=== PATIENT | male | born 1960 | race American Indian/Alaskan Native ===

== ENCOUNTER 2018-12-22 11:45 | Inpatient (IN) | payer OTHER ==
[2018-12-22 11:45] VITALS: BMI 20.7
--- NOTE | 2018-12-22 12:56 | C.PDOC ---
History Of Present Illness 58 year old with PMHx of bipolar disorder and substance abuse presents to the ED accompanied by requesting substance detoxification. As per , she found patient unresponsive yesterday status post overdose. Patient was taking to [facility] where he was discharged for overdose. Pt reports he does 5-10 bags of heroin daily. He states he attempted to commit suicide yesterday by snorting more than his usual amount of heroin and ingesting other pills from the street. Patient also admits to drinking alcohol and snorting cocaine. Last use of heroin was last night. Denies any visual/auditory hallucinations, SI or HI currently in the ED. Admits he needs help and is requesting detoxification. Chief Complaint (Nursing): Psychiatric Evaluation History Per: Patient, Family () History/Exam Limitations: no limitations Onset/Duration Of Symptoms: Days Current Symptoms Are (Timing): Still Present Suicide/Self Injury Attempted (Context): Ingestion Modifying Factor(s): Alcohol, Narcotics, Cocaine Associated Symptoms: Suicidal Thoughts Past Medical History Reviewed: Historical Data, Nursing Documentation, Vital Signs Vital Signs: Last Vital Signs Temp 98.1 F 12/22/18 11:47 Pulse 64 12/22/18 11:47 Resp 18 12/22/18 11:47 BP 164/106 H 12/22/18 11:47 Pulse Ox 100 12/22/18 11:47 Primary Care Provider: Javier Jeffries - Medical History PMH: Bipolar Disorder, Depression, HTN, Seizures Denies: Diabetes, Hepatitis, HIV, Chronic Kidney Disease, Sexually Transmitted Disease Other Surgeries: hx of surgeries Family History: States: No Known Family Hx - Social History Hx Alcohol Use: Yes Hx Substance Use: Yes (heroin, crack) - Immunization History Hx Tetanus Toxoid Vaccination: No Hx Influenza Vaccination: No Hx Pneumococcal Vaccination: No Review Of Systems Except As Marked, All Systems Reviewed And Found Negative. Constitutional: Negative for: Fever, Chills Cardiovascular: Negative for: Chest Pain Respiratory: Negative for: Shortness of Breath Gastrointestinal: Negative for: Nausea, Vomiting, Abdominal Pain, Diarrhea Psych: Negative for: Suicidal ideation, Other (hallucinations, HI ) Physical Exam - Physical Exam Appears: Non-toxic, No Acute Distress Skin: Warm, Dry Head: Normacephalic Eye(s): right: Other (opacified iris ), left: Normal Inspection Nose: Normal Oral Mucosa: Moist Neck: Supple Chest: Symmetrical Cardiovascular: Rhythm Regular Respiratory: Normal Breath Sounds, No Rales, No Rhonchi, No Wheezing Gastrointestinal/Abdominal: Soft, No Tenderness Extremity: No Pedal Edema, Other (venous stasis of bilateral lower extremities ) Neurological/Psych: Oriented x3, Normal Speech, Normal Cognition, Normal Motor, Normal Sensation Gait: Steady ED Course And Treatment - Laboratory Results Result Diagrams: 12/22/18 12:53 12/22/18 12:53 ECG: Interpreted By Me, Viewed By Me ECG Rhythm: Sinus Bradycardia Interpretation Of ECG: Normal axis, no ST elevations, normal QRS Rate From EC O2 Sat by Pulse Oximetry: 100 (RA) Pulse Ox Interpretation: Normal Medical Decision Making Medical Decision Making: Plan - EKG - UA - 1:1 Observation - Bloodwork for medical clearance for crisis evaluation. 13:45 Patient medically cleared for crisis evaluation. 14:42 ZAK Malhotra, states patient is accepted by Dr. Shoemaker to detox. Disposition Counseled Patient/Family Regarding: Studies Performed, Diagnosis - Disposition Disposition: HOSPITALIZED Disposition Time: 11:42 Condition: STABLE - POA Present On Arrival: Blood Incompatibility - Clinical Impression Clinical Impression: Bipolar disorder, Polysubstance abuse - Scribe Statement The provider has reviewed the documentation as recorded by the Scribe Renetta Centeno All medical record entries made by the Scribe were at my direction and personally dictated by me. I have reviewed the chart and agree that the record accurately reflects my personal performance of the history, physical exam, medical decision making, and the department course for this patient. I have also personally directed, reviewed, and agree with the discharge instructions and disposition.
[2018-12-22 12:57] LABS: BASO # 0.1 K/uL (0.0-0.2); BASO % 1.5 % (0.0-2.0); EOS # 0.2 K/uL (0.0-0.7); EOS % 3.8 % (0.0-4.0); HEMOGLOBIN 12.2 g/dL (12.0-18.0); LYMPH # 0.6 K/uL (1.0-4.3); LYMPH % 14.8 % (20.0-40.0); MEAN CELL VOLUME 93.6 fL (80.0-94.0); MEAN CORPUSCULAR HEMOGLOBIN 32.2 pg (27.0-31.0); MEAN CORPUSCULAR HGB CONC 34.4 g/dL (33.0-37.0); MONO # 0.2 K/uL (0.0-0.8); MONO % 5.5 % (0.0-10.0); NEUT # 3.2 K/uL (1.8-7.0); NEUT % 74.4 % (50.0-75.0); RBC 3.78 Mil/uL (4.40-5.90); RED CELL DISTRIBUTION WIDTH 15.2 % (11.5-14.5); WHITE BLOOD COUNT 4.3 K/uL (4.8-10.8)
[2018-12-22 13:06] LABS: SQUAMOUS EPITHIAL 1 /hpf (0-5); URINE BACTERIA RARE (<OCC); URINE BILIRUBIN NEGATIVE (NEGATIVE); URINE BLOOD NEGATIVE (NEGATIVE); URINE CLARITY Hazy (Clear); URINE COLOR Yellow (YELLOW); URINE GLUCOSE (UA) NORMAL (Normal); URINE LEUKOCYTE ESTERASE 1+ Leu/uL (Negative); URINE PROTEIN 1+ mg/dL (NEGATIVE)
[2018-12-22 13:09] LABS: ACETAMINOPHEN < 10.0 ug/mL (10.0-30.0); SALICYLATE < 1.0 {null, mg/dL 1}
[2018-12-22 13:11] LABS: ALB/GLOB RATIO 1.3 (1.0-2.1); ALBUMIN 3.5 g/dL (3.5-5.0); ALT/SGPT 24 U/L (21-72); AST/SGOT 22 U/L (17-59); BLOOD UREA NITROGEN 18 mg/dL (9-20); GFR NON-AFRICAN AMERICAN > 60
[2018-12-22 13:19] LABS: BARBITURATES, UR NEGATIVE (NEGATIVE); PHENCYCLIDINE, UR NEGATIVE (NEGATIVE)
[2018-12-22 13:42] LABS: BENZODIAZEPINES, UR POSITIVE (NEGATIVE); OPIATES, UR POSITIVE (NEGATIVE)
--- NOTE | 2018-12-22 15:34 | PCM.BM ---
Treatment Plan Problems - Problems identified on initial assessmt Denial Date Initiated: 12/22/18 Time Initiated: 15:33 Assessment reference: NA Status: Active Defensive Coping Date Initiated: 12/22/18 Time Initiated: 15:34 Assessment reference: NA Status: Active Hopelessness Date Initiated: 12/22/18 Time Initiated: 15:34 Assessment reference: NA Status: Active Treatment assets and liabiliti Patient Assests: cooperative, negotiates basic needs Patient Liabilities: financial problems, substance abuse - Milieu Protocol Maintain good personal hygiene: daily Encourage regular showers, daily Remind patient to perform daily oral care, daily Assist patient to perform ADL's Conduct patient checks and document Observation sheet: Q15 minutes Maintain personal safety: every shift Educate patient to report safety concerns to staff, every shift Monitor environment for contraband/sharps Medication safety: Monitor for expected outcome, potential side effects: every shift, Assess barriers to learning: every shift, Assess readiness for medication education: every shift
[2018-12-22] MEDS ORDERED: Aluminum Hydroxide/Magnesium Hydroxide Susp (30 mL) PO PRN (18:30)
--- NOTE | 2018-12-23 11:50 | PCM.PSYCH ---
Initial Psychiatric Evaluation - Initial Psychiatric Evaluation Type of Admission: Voluntary Legal Status: Capacity Chief Complaint (in patient's own words): I came here to get help. History of Present Illness and Precipitating Events: Pt is a 58 years old -[place] male, who is currently living with his fiance, came to the [facility] ED to get help in heroin, cocaine and benzos detox. Patient denies any past history of any inpatient psychiatric hospitalizations. However he reports history of being on psychiatric medication in the past and reports history of follow-up with a psychiatrist. He reports a long history of abusing heroin, benzos and cocaine. He reports of abusing 15-20 bags of heroin daily along with cocaine and some benzos. Yesterday his fiance got concerned and escorted him to the [facility] to get help in detox. He reports withdrawal symptoms including joint pains, cramps, nausea, sweating, headaches and anxiety. He reports anxiety and poor sleep, but denies any feelings of hopelessness or helplessness. He denies any suicidal ideation or homicidal ideation. He denies any auditory or visual hallucinations or any paranoia. Past medical history None reported Current Medications: Active Medications Generic Name Dose Route Start Last Admin Trade Name Freq PRN Reason Stop Dose Admin Al Hydrox/Mg Hydrox/Simethicone 30 ml 12/22/18 18:30 Maalox 30 Ml PO TID PRN Indigestion / Heartburn Clonidine HCl 0.1 mg 12/22/18 18:30 12/23/18 09:04 Catapres PO 0.1 mg Q4 PRN Administration COWS Score More or Equal to 5 Dicyclomine HCl 10 mg 12/22/18 18:30 Bentyl PO Q6 PRN Muscle spasm Hydroxyzine HCl 25 mg 12/22/18 18:30 Atarax PO Q6 PRN Agitation Loperamide HCl 2 mg 12/22/18 18:30 Imodium PO Q8 PRN Diarrhea Ondansetron HCl 4 mg 12/22/18 18:30 Zofran Tab PO Q8 PRN Nausea/Vomiting Pseudoephedrine HCl 60 mg 12/22/18 18:30 Sudafed Tab PO QID PRN Nasal/Sinus Congestion Past Psychiatric History - Past Psychiatric History Previous Treatment History: None Pertinent Medical Hx (Current Medical&Sleep Prob, Allergies): Allergies Allergy/AdvReac Type Severity Reaction Status Date / Time No Known Allergies Allergy Verified 12/21/18 19:35 Azithromycin [Zithromax] 500 mg PO DAILY #7 tab 04/11/17 Ibuprofen [Motrin Tab] 600 mg PO Q6 PRN #20 tab 04/11/17 Cephalexin [Keflex] 500 mg PO QID #28 capsule 02/12/18 Naloxone HCl [Narcan] 4 mg NS ONCE PRN #1 spray 12/14/18 Review of Systems - Review of Systems All systems: reviewed and no additional remarkable complaints except - Psychiatric Psychiatric: Anxiety, Irritability. absent: Auditory Hallucinations, Suicidal Ideation Mental Status Examination - Personal Presentation Personal Presentation: Looks stated age - Affect Affect: Constricted - Motor Activity Motor Activity: Calm - Reliability in Providing Information Reliability in Providing Information: Fair - Speech Speech: Organized - Mood Mood: Anxious - Formal Thought Process Formal Thought Process: No Impairment - Obsessions/Compulsions Obsessions: No Compulsions: No - Cognitive Functions Orientation: Person, Place, Situation, Time Sensorium: Alert Attention/Concentration: Attentive Abstract Thinking: [place] Estimate of Intelligence: Below average Judgement: Imparied, as evidence by: Poor judgement, Imparied, as evidence by: Lack of insight into illness - Risk Risk: Withdrawal, Diminished functioning - Strength & Assets Inventory Strength & Assets Inventory: Family support DSM 5 DX - DSM 5 DSM 5 Diagnosis: Opioid use disorder severe Opiate withdrawal Sedated/hypnotic use disorder moderate Cocaine use disorder severe - Recommended/Plan of Treatment Treatment Recommendations and Plan of Treatment: Opioid use disorder severe Opiate withdrawal Sedated/hypnotic use disorder moderate Cocaine use disorder severe CBT Psychiatry Supportive therapy and group therapy Methadone taper for heroin withdrawal Withdrawal medication including Zofran/multivitamin/voiding trial Hydroxyzine for anxiety Trazodone for insomnia
[2018-12-24 09:37] VITALS: RESP 18
--- NOTE | 2018-12-24 12:03 | PCM.PYCHPN ---
Psychiatric Progress Note - Psychiatric Progress Note Patient seen today, length of contact: 15 min Patient Chief Complaint: I came here to get help. Problems Identified/Issues Discussed: Patient was seen and evaluated, chart reviewed and discussed the staff. As per staff, patient remained isolated withdrawn. Patient reports of seeing things and shadows, but denies any auditory hallucination. Patient reports withdrawal symptoms including nausea, cramps, sweating, headaches, and joint pains. He reports irritability and anxiety but denies any suicidal ideation or any homicidal ideation. He is taking medication but denies any side effects. Symptoms are improving gradually but he needs to stay longer for further stabilization. Supportive therapy was given Medication Change: Yes Medical Record Reviewed: Yes Mental Status Examination - Cognitive Function Orientation: Person, Place, Situation, Time Memory: Intact Attention: WNL Concentration: Poor Association: WNL Fund of Knowledge: Poor - Mood Mood: Anxious - Affect Affect: Constricted - Speech Speech: Soft - Formal Thought Process Formal Thought Process: No Impairment - Suicidal Ideation Suicidal Ideation: No - Homicidal Ideation Homicidal Ideation: No Goal/Treatment Plan - Goal/Treatment Plan Need for Continued Stay: Remain at risks for inpatient hospitalization Progress Toward Problem(s) and Goals/Treatment Plan: Opioid use disorder severe Opiate withdrawal Sedated/hypnotic use disorder moderate Cocaine use disorder severe CBT Psychiatry Supportive therapy and group therapy Methadone taper for heroin withdrawal Withdrawal medication including Zofran/multivitamin/voiding trial Hydroxyzine for anxiety Trazodone for insomnia
[2018-12-26 06:28] VITALS: O2SAT 97
--- NOTE | 2018-12-26 08:28 | PCM.PYCHDC ---
Mental Status Examination - Mental Status Examination Orientation: Person, Place, Situation, Time Memory: Intact Mood: Anxious Affect: Constricted Speech: Appropriate Attention: WNL Concentration: WNL Association: WNL Fund of Knowledge: WNL Formal Thought Process: No Impairment Suicidal Ideation: No Current Homicidal Ideation?: No Discharge Summary - Discharge Note Reason for Hospitalization: Opioid detox Consultations:: List each consultation separately and include: 1. Reason for request. 2. Findings. 3. Follow-up Summary of Hospital Course include:: 1. Description of specific treatment plan utilized for patients during their course of treatmen. 2. Summarize the time- course for resolution of acute symptoms and/or regressed behaviors. 3. Describe issues identified and worked on during hospitalization. 4. Describe medication utilized. 5. Describe medical problems identified and treated. 6. Reassessment of suicide risk Summary of Hospital Course: Hospital course: The pt was admitted and started on treatment with psychotherapy, support, psychoeducation and medications. MN and CBT used. The pt attended groups and activities, as well as milieu therapy. All the risks and benefits of medications are discussed and the patient understood and agreed. The pt improved with the treatments provided. After care discussed with the patient. He will go to [facility]. - Final Diagnosis (DSM 5) Condition upon Discharge: STABLE DSM 5: Opioid use disorder severe Opiate withdrawal Sedated/hypnotic use disorder moderate Cocaine use disorder severe Disposition: HOME/ ROUTINE Follow-up Treatment Plan: Continue below medications after discharge. Follow after care plan as discussed. Use relapse prevention skills Return to ER or call 911 if suicidal, homicidal or symptoms relapse. Stay away from stress, alcohol and drugs. See primary doctor regularly and get labs. Prescriptions/Medication Reconciliation: traZODone [Desyrel] 50 mg PO HS #30 tab
[2018-12-26 11:01] VITALS: BP 135/89; PULSE 63; TEMP 98.1
--- NOTE | 2018-12-26 11:52 | PCM.PYCHPN ---
Psychiatric Progress Note - Psychiatric Progress Note Patient seen today, length of contact: 16 min Medication Change: Yes Medical Record Reviewed: Yes Mental Status Examination - Cognitive Function Orientation: Person - Mood Mood: Anxious - Affect Affect: Constricted - Speech Speech: Soft - Formal Thought Process Formal Thought Process: No Impairment - Suicidal Ideation Suicidal Ideation: No - Homicidal Ideation Homicidal Ideation: No Goal/Treatment Plan - Goal/Treatment Plan Need for Continued Stay: Remain at risks for inpatient hospitalization
--- NOTE | 2018-12-26 21:19 | CARD ---
APPROVED REPORT Date of service: 12/22/2018 EKG Measurement Heart [id number] <Conclusion> Sinus bradycardia Anterior infarct, age undetermined Abnormal ECG
== END 2018-12-26 09:15 | disposition home or self-care (01) | DRG 745 ==
LOC: C.ER 11:45 → C.7D 14:46
PROVIDERS: ADMIT Psychiatry & Neurology Psychiatry; ATTEND Psychiatry & Neurology Psychiatry
PROC: GZ56ZZZ Individual Psychotherapy, Supportive (ICD-10-PCS; principal; 2018-12-22)
DX: F11.23 Opioid dependence with withdrawal (principal); F41.9 Anxiety disorder, unspecified; G47.00 Insomnia, unspecified; I10 Essential (primary) hypertension; F31.9 Bipolar disorder, unspecified; F14.10 Cocaine abuse, uncomplicated; F15.10 Other stimulant abuse, uncomplicated